=== PATIENT | female | born 1950 | race African-American/Black ===

== ENCOUNTER → 2019-03-17 | Outpatient (CLI) | payer MEDICARE, MEDICAID ==
[~2019-03-17] MED LIST: AMLO10TA80 PO; ATOR10TA69 PO; CALC0.253 PO; CALC1TAB17 PO; CARV25TA47 PO; DIGO250T4 PO; HYDR-3933 PO; LISI10TA5 PO; LISINOPRIL; POTA10TA11 PO; REGADENOSON 0.4 MG/5 ML IV SCH; SPIR25TA6 PO; SYN175 PO; SYNTHROID; VICODIN
[2019-03-17 13:38] LABS: BASOPHILS % 0.9 % (0.0-2.0); EOSINOPHILS % 0.9 % (0.0-5.0); HEMOGLOBIN. 15.2 g/dL (12.0-16.0); LYMPHOCYTES % 29.5 % (20.0-50.0); MEAN CORPUSCULAR HEMOGLOBIN 31.9 pg (28.0-32.0); MEAN CORPUSCULAR VOLUME 90.5 fL (81.0-99.0); NEUTROPHILS % 60.7 % (40.0-76.0); RED BLOOD CELL COUNT 4.76 mill/uL (4.2-5.4); RED CELL DISTRIBUTION WIDTH 13.3 % (11.6-14.6)
[2019-03-17 13:41] LABS: CHLORIDE 111 mEq/L (98-107)
[2019-03-17 13:48] LABS: PARTIAL THROMBOPLASTIN TIME 26.3 sec (23.4-31.0); PROTHROMBIN TIME 10.7 sec (9.6-11.0)
[2019-03-17 13:52] LABS: PLATELET 183 x1000/uL (130-400)
== END | disposition home or self-care (01) ==
LOC: CARD 11:23
PROVIDERS: ATTEND Internal Medicine Clinical Cardiac Electrophysiology
DX: I42.0 Dilated cardiomyopathy (principal); I50.22 Chronic systolic (congestive) heart failure
CPT/HCPCS: 36415; 78452; 80048; 83735; 84439; 84443; 84481; 85025; 85610; 85730; 93017; A9500; J2785

== ENCOUNTER 2020-09-28 06:18 | Inpatient (IN) | payer MEDICARE, MEDICAID ==
[~2020-09-28] VITALS: Ht 170.2 cm; Wt 110.3 kg
[~2020-09-28 06:18] MED LIST changes: +LISI10TA26 PO; -LISI10TA5 PO; -REGADENOSON 0.4 MG/5 ML IV SCH
[2020-09-28] MEDS ORDERED: NITROGLYCERIN 50MG PREMIX 250 ML IV ONE (06:45)
[2020-09-28] MEDS ORDERED: FUROSEMIDE 40MG/4ML VIAL IVP ONE (06:45)
[2020-09-28 06:46] LABS: BASOPHILS % 0.8 % (0.0-2.0); EOSINOPHILS % 0.6 % (0.0-5.0); HEMOGLOBIN. 15.2 g/dL (12.0-16.0); LYMPHOCYTES % 39.1 % (20.0-50.0); MEAN CORPUSCULAR HEMOGLOBIN 31.3 pg (28.0-32.0); MEAN CORPUSCULAR VOLUME 96.9 fL (81.0-99.0); MEAN PLATELET VOLUME 12.2 fl (7.4-10.4); MONOCYTES % 4.7 % (2.0-8.0); NEUTROPHILS % 54.8 % (40.0-76.0); PLATELET 153 x1000/uL (130-400); RED BLOOD CELL COUNT 4.85 mill/uL (4.2-5.4); RED CELL DISTRIBUTION WIDTH 14.6 % (11.6-14.6)
[2020-09-28] MEDS ORDERED: ASPIRIN 81MG TABLET PO NR (08:49)
[2020-09-28] MEDS ORDERED: ENOXAPARIN 60MG/0.6ML SYR SUBCUT SCH (09:00)
[2020-09-28] MEDS ORDERED: CEFTRIAXONE 1 G PREMIX 50 ML IV SCH (14:15)
[2020-09-28] MEDS ORDERED: ACETAMINOPHEN 325MG TABLET PO PRN ×2 (14:30)
[2020-09-28] MEDS ORDERED: IPRATROPIUM/ALBUTEROL 0.5-3(2.5)MG/3ML NEB HHN PRN (14:30)
[2020-09-28] MEDS ORDERED: CLONIDINE 0.1MG TABLET PO PRN ×2 (14:30→15:15)
[2020-09-28] MEDS ORDERED: LORAZEPAM 0.5MG TABLET PO PRN (14:30)
[2020-09-28] MEDS ORDERED: DOCUSATE SODIUM 100MG CAPSULE PO PRN (14:30)
[2020-09-28] MEDS ORDERED: ONDANSETRON HCL 4MG/2ML INJ IV PRN (14:30)
[2020-09-28] MEDS ORDERED: AZITHROMYCIN 500 MG in DEXT 5% WATER 250 ML IV SCH (14:30)
[2020-09-28] MEDS: LEVOTHYROXINE SODIUM 175MCG TABLET PO SCH (14:40)
[2020-09-28] MEDS: CALCITRIOL 0.25MCG CAPSULE PO SCH (14:40)
[2020-09-28] MEDS ORDERED: CEFTRIAXONE 1,000 MG in DEXTROSE 5% WATER 50 ML IV SCH (15:00)
[2020-09-28] MEDS ORDERED: NALOXONE HCL 0.4MG/ML VIAL IV PRN (15:00)
[2020-09-28 16:13] LABS: C REACTIVE PROTEIN QUANT 4.6 mg/L (0.0-3.0)
[2020-09-28 16:18] LABS: CREATINE KINASE MB FRACTION 1.3 ng/mL (0.5-3.6)
[2020-09-28] MEDS: FUROSEMIDE 40MG/4ML VIAL IVP SCH (17:26)
[2020-09-28] MEDS ORDERED: DEXTROSE 50% WATER 50ML SYRINGE IV PRN (18:45)
[2020-09-28] MEDS: HYDROCODONE/ACETAMINOPHEN 5/325MG TABLET PO PRN (20:39)
[2020-09-28] MEDS: ATORVASTATIN CALCIUM 10MG TABLET PO SCH (20:41)
[2020-09-29] VITALS (9 sets, daily range): BP systolic 106–127; BP diastolic 45–82
[2020-09-29 00:18] LABS: *AMPHETAMINES SCREEN URINE NEGATIVE (NEGATIVE); *BARBITURATES SCREEN URINE NEGATIVE (NEGATIVE); *BENZODIAZEPINES SCREEN URINE NEGATIVE (NEGATIVE); *COCAINE SCREEN URINE NEGATIVE (NEGATIVE); METHADONE URINE SCREEN NEGATIVE (NEGATIVE); OPIATES URINE SCREEN NEGATIVE (NEGATIVE)
[2020-09-29 00:19] LABS: CANNABINOID URINE SCREEN NEGATIVE (NEGATIVE); PHENCYCLIDINE URINE SCREEN NEGATIVE (NEGATIVE)
[2020-09-29] MEDS: HYDROCODONE/ACETAMINOPHEN 5/325MG TABLET PO PRN ×2 (02:39→21:20)
[2020-09-29 06:28] LABS: CHLORIDE 108 mEq/L (98-107)
[2020-09-29 06:33] LABS: BASOPHILS % 0.8 % (0.0-2.0); EOSINOPHILS % 0.5 % (0.0-5.0); HEMATOCRIT. 40.5 % (36.0-48.0); HEMOGLOBIN. 13.6 g/dL (12.0-16.0); LYMPHOCYTES % 26.5 % (20.0-50.0); MEAN CORPUSCULAR HEMOGLOBIN 31.3 pg (28.0-32.0); MEAN CORPUSCULAR VOLUME 93.4 fL (81.0-99.0); MEAN PLATELET VOLUME 12.3 fl (7.4-10.4); MONOCYTES % 8.2 % (2.0-8.0); PLATELET 123 x1000/uL (130-400); RED BLOOD CELL COUNT 4.33 mill/uL (4.2-5.4); RED CELL DISTRIBUTION WIDTH 14.1 % (11.6-14.6)
[2020-09-29 06:38] LABS: CREATINE KINASE 811 IU/L (26-192); CREATINE KINASE MB FRACTION 3.6 ng/mL (0.5-3.6)
[2020-09-29] MEDS: BLOOD SUGAR DIAGNOSTIC STRIP TEST SCH ×4 (06:50→21:10)
[2020-09-29] MEDS: LEVOTHYROXINE SODIUM 175MCG TABLET PO SCH (06:58)
[2020-09-29 07:13] LABS: DIGOXIN 0.1 ng/mL (0.9-2.0)
[2020-09-29] MEDS: FUROSEMIDE 40MG/4ML VIAL IVP SCH ×2 (07:41→16:42)
[2020-09-29] MEDS: INSULIN LISPRO 100 UNITS/ML SUBCUT SCH ×4 (07:43→21:00)
[2020-09-29 08:48] LABS: BG BASE EXCESS -2.2 mmol/L (-2.0-2.0); BG CARBOXYHEMOGLOBIN 0.4 % (0.5-1.5); BG DEOXYHEMOGLOBIN 4.4 % (0.0-5.0); BG FRACTION INSPIRED OXYGEN 40; BG HCO3 ACT 22.4 mmol/L (22.0-26.0); BG METHEMOGLOBIN 0.2 % (0.0-1.5); BG OXYGEN SATURATION 95.6 % (92.0-98.5); BG PCO2 37.8 mmHg (35.0-45.0); BG PO2 77.7 mmHg (75.0-100.0); BG SAMPLE SITE RIGHT RADIAL; BG TOTAL HEMOGLOBIN 13.7 g/dL (12.0-18.0); BG VENT MODE MASK - SIMPLE
[2020-09-29] MEDS: CALCIUM 1250MG TABLET (500MG ELEMENTAL CALCIUM) PO SCH (09:32)
[2020-09-29] MEDS: CALCITRIOL 0.25MCG CAPSULE PO SCH (09:32)
[2020-09-29] MEDS ORDERED: POTASSIUM CHLORIDE 20MEQ TABLET SR PO NR (10:37)
[2020-09-29 16:39] LABS: HEPATITIS B SURFACE ANTIGEN NEGATIVE
[2020-09-29 17:08] LABS: HEPATITIS A AB IGM NEGATIVE (NEGATIVE)
[2020-09-29] MEDS: ATORVASTATIN CALCIUM 10MG TABLET PO SCH (21:09)
[2020-09-29] MEDS: ENOXAPARIN 30MG/0.3ML SYR SUBCUT SCH (21:10)
[2020-09-30] VITALS (12 sets, daily range): BP systolic 105–143; BP diastolic 54–94
[2020-09-30] MEDS: BLOOD SUGAR DIAGNOSTIC STRIP TEST SCH ×4 (06:30→21:05)
[2020-09-30] MEDS: FUROSEMIDE 40MG/4ML VIAL IVP SCH ×2 (06:30→17:00)
[2020-09-30] MEDS: LEVOTHYROXINE SODIUM 175MCG TABLET PO SCH (06:30)
[2020-09-30 06:35] LABS: BASOPHILS % 0.4 % (0.0-2.0); HEMATOCRIT. 43.7 % (36.0-48.0); HEMOGLOBIN. 14.5 g/dL (12.0-16.0); LYMPHOCYTES % 26.8 % (20.0-50.0); MEAN CORPUSCULAR HEMOGLOBIN 31.2 pg (28.0-32.0); MEAN CORPUSCULAR VOLUME 94.2 fL (81.0-99.0); MONOCYTES % 10.2 % (2.0-8.0); NEUTROPHILS % 61.6 % (40.0-76.0); PLATELET 156 x1000/uL (130-400); RED BLOOD CELL COUNT 4.64 mill/uL (4.2-5.4); RED CELL DISTRIBUTION WIDTH 13.7 % (11.6-14.6)
[2020-09-30] MEDS: INSULIN LISPRO 100 UNITS/ML SUBCUT SCH ×4 (06:58→21:00)
[2020-09-30] MEDS: CALCIUM 1250MG TABLET (500MG ELEMENTAL CALCIUM) PO SCH (09:00)
[2020-09-30] MEDS: CALCITRIOL 0.25MCG CAPSULE PO SCH (09:00)
[2020-09-30] MEDS: ENOXAPARIN 30MG/0.3ML SYR SUBCUT SCH (09:07)
[2020-09-30] MEDS: ATORVASTATIN CALCIUM 10MG TABLET PO SCH (21:04)
[2020-09-30] MEDS: CARVEDILOL 12.5MG TABLET PO SCH (21:05)
[2020-10-01] VITALS (26 sets, daily range): BP systolic 70–127; BP diastolic 42–84
[2020-10-01 06:16] LABS: CHLORIDE 101 mEq/L (98-107)
[2020-10-01 06:33] LABS: INR 1.1; PARTIAL THROMBOPLASTIN TIME 28.1 sec (23.4-31.0); PROTHROMBIN TIME 11.4 sec (9.6-11.0)
[2020-10-01] MEDS: LEVOTHYROXINE SODIUM 175MCG TABLET PO SCH (06:38)
[2020-10-01] MEDS: FUROSEMIDE 40MG/4ML VIAL IVP SCH (06:38)
[2020-10-01] MEDS: BLOOD SUGAR DIAGNOSTIC STRIP TEST SCH ×4 (06:38→21:45)
[2020-10-01 06:39] LABS: BASOPHILS % 0.7 % (0.0-2.0); EOSINOPHILS % 1.4 % (0.0-5.0); HEMATOCRIT. 45.6 % (36.0-48.0); LYMPHOCYTES % 27.5 % (20.0-50.0); MEAN CORPUSCULAR HEMOGLOBIN 31.2 pg (28.0-32.0); MEAN CORPUSCULAR VOLUME 94.6 fL (81.0-99.0); MEAN PLATELET VOLUME 11.4 fl (7.4-10.4); MONOCYTES % 9.2 % (2.0-8.0); NEUTROPHILS % 61.2 % (40.0-76.0); PLATELET 166 x1000/uL (130-400); RED BLOOD CELL COUNT 4.82 mill/uL (4.2-5.4)
[2020-10-01] MEDS: INSULIN LISPRO 100 UNITS/ML SUBCUT SCH ×4 (07:20→21:00)
[2020-10-01] MEDS: CARVEDILOL 12.5MG TABLET PO SCH ×2 (09:00→21:00)
[2020-10-01] MEDS ORDERED: ASPIRIN/SOD BICARB/CITRIC ACID 324MG TAB EFF ONE (10:10)
[2020-10-01] MEDS ORDERED: MIDAZOLAM HCL 2 MG/2 ML VIAL ONE (10:20)
[2020-10-01] MEDS ORDERED: LIDOCAINE HCL 1% 20ML VIAL (Pyxis) INJ ONE (10:21)
[2020-10-01] MEDS ORDERED: FENTANYL CITRATE/PF 50MCG/ML 2ML VIAL ONE (10:21)
[2020-10-01] MEDS ORDERED: IODIXANOL 320MG/ML 100 ML BOTTLE IV ONE (10:22)
[2020-10-01] MEDS ORDERED: NICARDIPINE 100MCG/ML 10ML VIAL (CATH LAB) IV ONE (10:43)
[2020-10-01] MEDS ORDERED: HEPARIN SODIUM 1,000 UNIT/1ML VIAL IV ONE (10:43)
[2020-10-01] MEDS ORDERED: NITROGLYCERIN 50MCG/ML 10ML VIAL (CATH LAB) IV ONE (10:43)
[2020-10-01] MEDS ORDERED: ACETAMINOPHEN 325MG TABLET PO PRN (11:15)
[2020-10-01] MEDS ORDERED: ATROPINE SULFATE 1MG/10ML SYR IV PRN (11:15)
[2020-10-01] MEDS ORDERED: ONDANSETRON HCL 4MG/2ML INJ IV PRN (11:15)
[2020-10-01] MEDS ORDERED: SODIUM CHLORIDE 0.45% 400 ML IV ONE (11:30)
[2020-10-01] MEDS: CALCIUM 1250MG TABLET (500MG ELEMENTAL CALCIUM) PO SCH (13:21)
[2020-10-01] MEDS: CALCITRIOL 0.25MCG CAPSULE PO SCH (13:21)
[2020-10-01] MEDS: FUROSEMIDE 40MG TABLET PO SCH (21:47)
[2020-10-01] MEDS: ATORVASTATIN CALCIUM 10MG TABLET PO SCH (21:47)
[2020-10-02] VITALS (10 sets, daily range): BP systolic 101–140; BP diastolic 51–77
[2020-10-02] MEDS: LEVOTHYROXINE SODIUM 175MCG TABLET PO SCH (05:57)
[2020-10-02 06:52] LABS: BASOPHILS % 0.8 % (0.0-2.0); EOSINOPHILS % 1.6 % (0.0-5.0); HEMATOCRIT. 44.6 % (36.0-48.0); HEMOGLOBIN. 15.3 g/dL (12.0-16.0); LYMPHOCYTES % 24.4 % (20.0-50.0); MEAN CORPUSCULAR VOLUME 93.6 fL (81.0-99.0); MEAN PLATELET VOLUME 12.1 fl (7.4-10.4); MONOCYTES % 9.1 % (2.0-8.0); NEUTROPHILS % 64.1 % (40.0-76.0); PLATELET 157 x1000/uL (130-400); RED BLOOD CELL COUNT 4.77 mill/uL (4.2-5.4); RED CELL DISTRIBUTION WIDTH 13.9 % (11.6-14.6)
[2020-10-02] MEDS: BLOOD SUGAR DIAGNOSTIC STRIP TEST SCH ×2 (07:01→11:50)
[2020-10-02] MEDS: CALCIUM 1250MG TABLET (500MG ELEMENTAL CALCIUM) PO SCH (07:44)
[2020-10-02] MEDS: FUROSEMIDE 40MG TABLET PO SCH (07:45)
[2020-10-02] MEDS: CALCITRIOL 0.25MCG CAPSULE PO SCH (07:45)
[2020-10-02] MEDS: INSULIN LISPRO 100 UNITS/ML SUBCUT SCH ×2 (07:46→12:43)
== END 2020-10-02 17:09 | disposition home health service (06) | DRG 280 ==
LOC: ER 06:45 → MICUSO 08:25 → 3WST 21:09
PROVIDERS: ADMIT Internal Medicine; ATTEND Internal Medicine
PROC: 5A09357 Assistance with Respiratory Ventilation, Less than 24 Consecutive Hours, Continuous Positive Airway Pressure (ICD-10-PCS; principal; 2020-10-01)
PROC: 4A023N7 Measurement of Cardiac Sampling and Pressure, Left Heart, Percutaneous Approach (ICD-10-PCS; 2020-10-01)
PROC: B2111ZZ Fluoroscopy of Multiple Coronary Arteries using Low Osmolar Contrast (ICD-10-PCS; 2020-10-01)
DX: I21.4 Non-ST elevation (NSTEMI) myocardial infarction (principal); J96.21 Acute and chronic respiratory failure with hypoxia; I50.43 Acute on chronic combined systolic (congestive) and diastolic (congestive) heart failure; J15.9 Unspecified bacterial pneumonia; I13.0 Hypertensive heart and chronic kidney disease with heart failure and stage 1 through stage 4 chronic kidney disease, or unspecified chronic kidney disease; I42.0 Dilated cardiomyopathy; I16.0 Hypertensive urgency; E78.5 Hyperlipidemia, unspecified; E66.01 Morbid (severe) obesity due to excess calories; E11.65 Type 2 diabetes mellitus with hyperglycemia; E11.22 Type 2 diabetes mellitus with diabetic chronic kidney disease; E03.9 Hypothyroidism, unspecified; D72.829 Elevated white blood cell count, unspecified; N18.9 Chronic kidney disease, unspecified; Z20.822 Contact with and (suspected) exposure to COVID-19; D69.6 Thrombocytopenia, unspecified; K76.0 Fatty (change of) liver, not elsewhere classified; R74.01 Elevation of levels of liver transaminase levels; E11.40 Type 2 diabetes mellitus with diabetic neuropathy, unspecified; Z71.3 Dietary counseling and surveillance; Z95.810 Presence of automatic (implantable) cardiac defibrillator; Z68.38 Body mass index [BMI] 38.0-38.9, adult; Z79.899 Other long term (current) drug therapy
CPT/HCPCS: 36415; 36600; 71045; 76700; 78582; 80048; 80053; 80061; 80076; 80162; 80305; 82010; 82330; 82375; 82550; 82553; 82728; 82805; 82962; 83036; 83615; 83735; 83880; 84145; 84443; 84484; 85025; 85379; 86140; 86705; 86709; 86803; 87340; 87426; 93005; 93306; 93458; 93970; 94660; 99291; A9558; C1769; C1887; C1893; J0456; J0696; J1644; J1650; J1815; J1940; J2250; J3010; J3490; J7060; Q9967

== ENCOUNTER 2021-02-02 02:08 | Inpatient (IN) | payer MEDICARE, MEDICAID ==
[~2021-02-02] VITALS: Ht 170.2 cm; Wt 114.8 kg
[~2021-02-02 02:08] MED LIST changes: -LISINOPRIL; -SYNTHROID; -VICODIN
[2021-02-02] MEDS ORDERED: FUROSEMIDE 40MG/4ML VIAL IVP ONE (02:45)
[2021-02-02 02:58] LABS: CHLORIDE 111 mEq/L (98-107)
[2021-02-02 03:02] LABS: HEMOGLOBIN. 15.7 g/dL (12.0-16.0); LYMPHOCYTES % 41.1 % (20.0-50.0); MEAN CORPUSCULAR VOLUME 94.8 fL (81.0-99.0); MEAN PLATELET VOLUME 11.8 fl (7.4-10.4); MONOCYTES % 6.2 % (2.0-8.0); NEUTROPHILS % 50.7 % (40.0-76.0); PLATELET 188 x1000/uL (130-400); RED BLOOD CELL COUNT 5.06 mill/uL (4.2-5.4); RED CELL DISTRIBUTION WIDTH 13.4 % (11.6-14.6)
[2021-02-02 05:06] LABS: BG BASE EXCESS -3.2 mmol/L (-2.0-2.0); BG CARBOXYHEMOGLOBIN 0.3 % (0.5-1.5); BG FRACTION INSPIRED OXYGEN 100; BG HCO3 ACT 22.4 mmol/L (22.0-26.0); BG METHEMOGLOBIN 0.3 % (0.0-1.5); BG OXYHEMOGLOBIN 98.4 % (94.0-97.0); BG PCO2 42.1 mmHg (35.0-45.0); BG PH 7.344 (7.350-7.450); BG PO2 177.9 mmHg (75.0-100.0); BG SAMPLE SITE RIGHT RADIAL; BG TOTAL HEMOGLOBIN 15.8 g/dL (12.0-18.0); BG VENT MODE MASK - BIPAP
[2021-02-02] MEDS ORDERED: ASPIRIN 325MG EC TABLET PO ONE (06:00)
[2021-02-02] MEDS ORDERED: IPRATROPIUM/ALBUTEROL 0.5-3(2.5)MG/3ML NEB HHN PRN (09:30)
[2021-02-02] MEDS ORDERED: CLONIDINE 0.1MG TABLET PO PRN (09:30)
[2021-02-02] MEDS ORDERED: ENOXAPARIN 40MG/0.4ML SYR SUBCUT SCH (09:30)
[2021-02-02] MEDS ORDERED: ACETAMINOPHEN 325MG TABLET PO PRN (09:30)
[2021-02-02] MEDS ORDERED: DIPHENHYDRAMINE 50MG/ML VIAL IV PRN (09:30)
[2021-02-02] MEDS ORDERED: ONDANSETRON HCL 4MG/2ML INJ IV PRN (09:30)
[2021-02-02] MEDS: ENOXAPARIN 30MG/0.3ML SYR SUBCUT SCH ×2 (09:58→21:48)
[2021-02-02] MEDS ORDERED: FUROSEMIDE 40MG/4ML VIAL IV SCH (17:15)
[2021-02-02 18:18] VITALS: BP 114/80
[2021-02-02 20:00] VITALS: BP 117/58
[2021-02-02] MEDS ORDERED: ATORVASTATIN CALCIUM 10MG TABLET PO SCH (21:00)
[2021-02-02] MEDS: CARVEDILOL 12.5MG TABLET PO SCH (21:49)
[2021-02-02] MEDS ORDERED: HYDROCODONE/ACETAMINOPHEN 5/325MG TABLET PO PRN (22:00)
[2021-02-02] MEDS ORDERED: NALOXONE HCL 0.4MG/ML VIAL IV PRN (22:00)
[2021-02-03] VITALS: BP 98/52
[2021-02-03 04:00] VITALS: BP 103/53
[2021-02-03 05:41] LABS: BASOPHILS % 0.4 % (0.0-2.0); EOSINOPHILS % 0.8 % (0.0-5.0); HEMATOCRIT. 39.9 % (36.0-48.0); HEMOGLOBIN. 13.6 g/dL (12.0-16.0); LYMPHOCYTES % 31.3 % (20.0-50.0); MEAN CORPUSCULAR HEMOGLOBIN 31.6 pg (28.0-32.0); MEAN CORPUSCULAR VOLUME 92.7 fL (81.0-99.0); MEAN PLATELET VOLUME 11.3 fl (7.4-10.4); MONOCYTES % 9.3 % (2.0-8.0); NEUTROPHILS % 58.2 % (40.0-76.0); PLATELET 147 x1000/uL (130-400); RED BLOOD CELL COUNT 4.31 mill/uL (4.2-5.4); RED CELL DISTRIBUTION WIDTH 13.5 % (11.6-14.6)
[2021-02-03 05:59] LABS: CHLORIDE 109 mEq/L (98-107)
[2021-02-03] MEDS: BLOOD SUGAR DIAGNOSTIC STRIP TEST SCH ×2 (07:29→12:10)
[2021-02-03 08:00] VITALS: BP 102/60
[2021-02-03] MEDS ORDERED: POTASSIUM CHLORIDE 10MEQ TABLET SR PO SCH (09:00)
[2021-02-03] MEDS ORDERED: AMLODIPINE 2.5MG TABLET PO SCH (09:00)
[2021-02-03] MEDS: ENOXAPARIN 30MG/0.3ML SYR SUBCUT SCH (09:03)
[2021-02-03] MEDS: CARVEDILOL 12.5MG TABLET PO SCH (09:08)
[2021-02-03 12:00] VITALS: BP 91/45
[2021-02-03] MEDS ORDERED: ATOR10TA69 PO (12:33)
[2021-02-03] MEDS ORDERED: AMLO2.5T45 PO (12:33)
[2021-02-03] MEDS ORDERED: COR12 PO (12:33)
[2021-02-03] MEDS ORDERED: FURO40TA5 MT (12:33)
[2021-02-03 13:39] VITALS: BP 91/45
== END 2021-02-03 14:50 | disposition home health service (06) | DRG 189 ==
LOC: ER 02:08 → EDBEDREQTM 04:48 → EDBEDREQ 04:48 → MICUSO 12:37 → 8WST 14:46
PROVIDERS: ADMIT Internal Medicine; ATTEND Internal Medicine
PROC: 5A09357 Assistance with Respiratory Ventilation, Less than 24 Consecutive Hours, Continuous Positive Airway Pressure (ICD-10-PCS; principal; 2021-02-02)
DX: J96.01 Acute respiratory failure with hypoxia (principal); I50.23 Acute on chronic systolic (congestive) heart failure; I42.0 Dilated cardiomyopathy; E03.9 Hypothyroidism, unspecified; E78.5 Hyperlipidemia, unspecified; E11.40 Type 2 diabetes mellitus with diabetic neuropathy, unspecified; I11.0 Hypertensive heart disease with heart failure; I25.10 Atherosclerotic heart disease of native coronary artery without angina pectoris; Z79.899 Other long term (current) drug therapy; Z95.810 Presence of automatic (implantable) cardiac defibrillator
CPT/HCPCS: 36415; 36600; 71045; 80053; 82375; 82805; 82962; 83036; 83880; 84443; 84484; 85025; 93005; 93306; 93970; 94660; 99291; J1650; J1940; A4315

== ENCOUNTER 2021-04-21 06:48 | Inpatient (IN) | payer MEDICARE, MEDICAID ==
[~2021-04-21] VITALS: Ht 167.6 cm; Wt 116.2 kg
[~2021-04-21 06:48] MED LIST changes: -AMLO10TA80 PO; +AMLO2.5T45 PO; -CARV25TA47 PO; +COR12 PO; -DIGO250T4 PO; +FURO40TA5 MT; -LISI10TA26 PO; -SPIR25TA6 PO
[2021-04-21] MEDS ORDERED: GENTAMICIN SULF 40MG/ML 2ML VIAL ONE (07:27)
[2021-04-21] MEDS ORDERED: CEFAZOLIN 1000MG PREMIX 100 ML IV ONE (07:27)
[2021-04-21] MEDS ORDERED: IODIXANOL 320MG/ML 100 ML BOTTLE IV ONE (07:28)
[2021-04-21] MEDS ORDERED: GENTAMICIN/NS IRRIGATION 500 ML IR ONE (07:28)
[2021-04-21] MEDS ORDERED: LIDOCAINE HCL 1% 30ML VIAL (10MG/ML) ONE ×2 (07:28→09:43)
[2021-04-21 07:56] LABS: CHLORIDE 110 mEq/L (98-107)
[2021-04-21 08:00] LABS: PROTHROMBIN TIME 10.9 sec (9.6-11.0)
[2021-04-21 08:05] LABS: BASOPHILS % 0.8 % (0.0-2.0); EOSINOPHILS % 0.8 % (0.0-5.0); HEMATOCRIT. 41.4 % (36.0-48.0); HEMOGLOBIN. 14.4 g/dL (12.0-16.0); LYMPHOCYTES % 22.3 % (20.0-50.0); MEAN CORPUSCULAR VOLUME 92.1 fL (81.0-99.0); MEAN PLATELET VOLUME 11.3 fl (7.4-10.4); MONOCYTES % 7.6 % (2.0-8.0); NEUTROPHILS % 68.5 % (40.0-76.0); PLATELET 196 x1000/uL (130-400); RED CELL DISTRIBUTION WIDTH 14.6 % (11.6-14.6)
[2021-04-21] MEDS ORDERED: EPHEDRINE SULFATE 50MG/ML VIAL ONE (08:48)
[2021-04-21] MEDS ORDERED: FUROSEMIDE 20MG/2ML VIAL ONE (08:48)
[2021-04-21] MEDS ORDERED: PROPOFOL 200MG/20ML VIAL IV ONE (08:48)
[2021-04-21] MEDS ORDERED: ONDANSETRON HCL 4MG/2ML INJ ONE (08:48)
[2021-04-21] MEDS ORDERED: DEXAMETHASONE 4MG/ML 1ML VIAL ONE (08:49)
[2021-04-21] MEDS ORDERED: MIDAZOLAM HCL 2 MG/2 ML VIAL ONE (08:49)
[2021-04-21] MEDS ORDERED: FENTANYL CITRATE/PF 50MCG/ML 2ML VIAL ONE (08:49)
[2021-04-21] MEDS ORDERED: PHENYLEPHRINE HCL 10 MG/ML 1ML (IV VIAL) IV ONE (08:54)
[2021-04-21] MEDS ORDERED: ETOMIDATE 2MG/ML 10ML VIAL IV ONE (08:54)
[2021-04-21] MEDS ORDERED: FENTANYL CITRATE/PF 50MCG/ML 2ML VIAL IV PRN (12:45)
[2021-04-21] MEDS ORDERED: NALOXONE HCL 0.4MG/ML VIAL IV PRN (15:00)
[2021-04-21 15:30] VITALS: BP 126/56
[2021-04-21 15:51] VITALS: BP 126/56
[2021-04-21] MEDS: HYDROCODONE/ACETAMINOPHEN 10/325MG TABLET PO SCH ×2 (17:02→20:55)
[2021-04-21] MEDS: FUROSEMIDE 40MG TABLET PO SCH (17:02)
[2021-04-21 17:30] VITALS: BP 128/80
[2021-04-21] MEDS: CEFAZOLIN 1000MG PREMIX 50 ML IV SCH (18:18)
[2021-04-21 20:00] VITALS: BP 124/70
[2021-04-21] MEDS: CARVEDILOL 12.5MG TABLET PO SCH (20:54)
[2021-04-21 22:00] VITALS: BP 135/90
[2021-04-21] MEDS ORDERED: CEFAZOLIN SODIUM 1000MG/VIAL IV SCH (22:00)
[2021-04-22] VITALS (13 sets, daily range): BP systolic 97–125; BP diastolic 53–87
[2021-04-22] MEDS: CEFAZOLIN 1000MG PREMIX 50 ML IV SCH (00:02)
[2021-04-22] MEDS: FUROSEMIDE 40MG TABLET PO SCH ×2 (06:33→17:57)
[2021-04-22] MEDS: LEVOTHYROXINE SODIUM 175MCG TABLET PO SCH (06:33)
[2021-04-22] MEDS: HYDROCODONE/ACETAMINOPHEN 5/325MG TABLET PO PRN (06:34)
[2021-04-22 07:06] LABS: BASOPHILS % 0.1 % (0.0-2.0); HEMATOCRIT. 37.8 % (36.0-48.0); LYMPHOCYTES % 13.2 % (20.0-50.0); MEAN CORPUSCULAR HEMOGLOBIN 31.6 pg (28.0-32.0); MEAN CORPUSCULAR VOLUME 92.1 fL (81.0-99.0); MEAN PLATELET VOLUME 11.3 fl (7.4-10.4); MONOCYTES % 7.7 % (2.0-8.0); PLATELET 164 x1000/uL (130-400); RED CELL DISTRIBUTION WIDTH 14.3 % (11.6-14.6)
[2021-04-22] MEDS: CALCIUM 1250MG TABLET (500MG ELEMENTAL CALCIUM) PO SCH (08:43)
[2021-04-22] MEDS: ATORVASTATIN CALCIUM 10MG TABLET PO SCH (08:43)
[2021-04-22] MEDS: CALCITRIOL 0.25MCG CAPSULE PO SCH (08:43)
[2021-04-22] MEDS: AMLODIPINE 2.5MG TABLET PO SCH (08:43)
[2021-04-22] MEDS: HYDROCODONE/ACETAMINOPHEN 10/325MG TABLET PO SCH ×4 (08:48→22:08)
[2021-04-22] MEDS: CARVEDILOL 12.5MG TABLET PO SCH ×2 (08:51→22:07)
[2021-04-23] VITALS (8 sets, daily range): BP systolic 88–126; BP diastolic 43–94
[2021-04-23] MEDS: HYDROCODONE/ACETAMINOPHEN 5/325MG TABLET PO PRN (03:35)
[2021-04-23] MEDS: FUROSEMIDE 40MG TABLET PO SCH (06:15)
[2021-04-23] MEDS: LEVOTHYROXINE SODIUM 175MCG TABLET PO SCH (06:15)
[2021-04-23] MEDS: AMLODIPINE 2.5MG TABLET PO SCH (08:11)
[2021-04-23] MEDS: ATORVASTATIN CALCIUM 10MG TABLET PO SCH (08:11)
[2021-04-23] MEDS: CALCITRIOL 0.25MCG CAPSULE PO SCH (08:12)
[2021-04-23] MEDS: CALCIUM 1250MG TABLET (500MG ELEMENTAL CALCIUM) PO SCH (08:12)
[2021-04-23] MEDS: HYDROCODONE/ACETAMINOPHEN 10/325MG TABLET PO SCH (08:12)
[2021-04-23] MEDS: CARVEDILOL 12.5MG TABLET PO SCH (08:12)
== END 2021-04-23 12:30 | disposition home or self-care (01) | DRG 242 ==
LOC: CCL 06:48 → 3WST 06:49
PROVIDERS: ADMIT Internal Medicine Clinical Cardiac Electrophysiology; ATTEND Internal Medicine Clinical Cardiac Electrophysiology
PROC: 02HP32Z Insertion of Monitoring Device into Pulmonary Trunk, Percutaneous Approach (ICD-10-PCS; principal; 2021-04-21)
PROC: 0JH606Z Insertion of Pacemaker, Dual Chamber into Chest Subcutaneous Tissue and Fascia, Open Approach (ICD-10-PCS; 2021-04-21)
PROC: 02H43JZ Insertion of Pacemaker Lead into Coronary Vein, Percutaneous Approach (ICD-10-PCS; 2021-04-21)
PROC: 0JPT0PZ Removal of Cardiac Rhythm Related Device from Trunk Subcutaneous Tissue and Fascia, Open Approach (ICD-10-PCS; 2021-04-21)
PROC: 4A023N8 Measurement of Cardiac Sampling and Pressure, Bilateral, Percutaneous Approach (ICD-10-PCS; 2021-04-21)
PROC: B211YZZ Fluoroscopy of Multiple Coronary Arteries using Other Contrast (ICD-10-PCS; 2021-04-21)
PROC: 4A023FZ Measurement of Cardiac Rhythm, Percutaneous Approach (ICD-10-PCS; 2021-04-21)
PROC: B517YZZ Fluoroscopy of Left Subclavian Vein using Other Contrast (ICD-10-PCS; 2021-04-21)
PROC: 02H633Z Insertion of Infusion Device into Right Atrium, Percutaneous Approach (ICD-10-PCS; 2021-04-21)
PROC: B518ZZA Fluoroscopy of Superior Vena Cava, Guidance (ICD-10-PCS; 2021-04-21)
DX: I11.0 Hypertensive heart disease with heart failure (principal); I50.23 Acute on chronic systolic (congestive) heart failure; I49.01 Ventricular fibrillation; Z68.41 Body mass index [BMI] 40.0-44.9, adult; I44.7 Left bundle-branch block, unspecified; I42.8 Other cardiomyopathies; I27.29 Other secondary pulmonary hypertension; Z20.822 Contact with and (suspected) exposure to COVID-19; E03.9 Hypothyroidism, unspecified; E66.9 Obesity, unspecified; E78.5 Hyperlipidemia, unspecified; Z72.0 Tobacco use; I49.9 Cardiac arrhythmia, unspecified
CPT/HCPCS: 33225; 33264; 36415; 71045; 75820; 80048; 85025; 87426; 93005; 93451; 93641; A4565; C1769; C1882; C1892; C1893; C1900; J0690; J1100; J1580; J1644; J1940; J2250; J2370; J2405; J2704; J3010; J3490; Q9967; A4315